=== PATIENT | female | born 1950 | race Caucasian/White ===

== ENCOUNTER 2017-08-19 16:19 | Emergency (ER) | payer OTHER, SELFPAY ==
[2017-08-19 16:29] VITALS: BP 123/61; PULSE 75; RESP 16; TEMP 97.7; O2SAT 99
--- NOTE | 2017-08-19 16:48 | ED PDOC ---
HPI: General Adult Time Seen by Provider: 08/19/17 16:38 Chief Complaint (Nursing): Flu-like Symptoms Chief Complaint (Provider): cough, body aches History Per: Patient Additional Complaint(s): 66-year-old female presents with cough for 2 weeks productive of yellow sputum. She also has tactile fever but has not measured temperature. She has mild back pain as well with no dysuria or hematuria. No associated nausea, vomiting, diarrhea or abdominal pain. Patient has mild chest pain but only when coughing excessively. She denies any recent travel. PMD: none Past Medical History Reviewed: Historical Data, Nursing Documentation, Vital Signs Vital Signs: Last Vital Signs Temp 97.7 F 08/19/17 16:26 Pulse 75 08/19/17 16:26 Resp 16 08/19/17 16:26 BP 123/61 08/19/17 16:26 Pulse Ox 99 08/19/17 17:18 - Medical History PMH: No Chronic Diseases - Surgical History Other surgeries: bladder suspension, hysterectomy - Family History Family History: States: No Known Family Hx - Living Arrangements Living Arrangements: With Family - Social History Current smoker - smoking cessation education provided: No Ex-Smoker (has not smoked in the last 12 months): Yes (quit 40 years ago) Alcohol: None Drugs: Denies - Home Medications Home Medications: Ambulatory Orders Medication Instructions Recorded Nitrofurantoin Macrocrystals 100 mg PO BID #20 cap 10/08/14 [Macrobid] Phenazopyridine HCl [Pyridium] 100 mg PO TID #6 tab 10/08/14 Albuterol HFA [Ventolin HFA 90 1 puff IH ASDIR #1 unit 08/19/17 mcg/actuation (8 g)] Azithromycin [Zithromax] 250 mg PO DAILY #6 tab 08/19/17 Benzonatate 200 mg PO TID PRN #20 capsule 08/19/17 - Allergies Allergies/Adverse Reactions: Allergies Allergy/AdvReac Type Severity Reaction Status Date / Time No Known Allergies Allergy Verified 10/08/14 19:06 Review of Systems ROS Statement: Except As Marked, All Systems Reviewed And Found Negative Constitutional: Positive for: Fever (tactile). Negative for: Chills, Weakness Cardiovascular: Positive for: Chest Pain (only when coughing) Respiratory: Positive for: Cough, Sputum (yellow). Negative for: Shortness of Breath Gastrointestinal: Negative for: Nausea, Vomiting, Abdominal Pain, Diarrhea Genitourinary Female: Negative for: Dysuria Musculoskeletal: Positive for: Back Pain Neurological: Negative for: Headache, Dizziness Physical Exam - Reviewed Nursing Documentation Reviewed: Yes Vital Signs Reviewed: Yes - Physical Exam Appears: Positive for: Well, Non-toxic, No Acute Distress Skin: Positive for: Normal Color. Negative for: Rash Eye Exam: Positive for: Normal appearance Cardiovascular/Chest: Positive for: Regular Rate, Rhythm Respiratory: Positive for: Normal Breath Sounds, Other (coughing noted during exam). Negative for: Wheezing, Respiratory Distress Gastrointestinal/Abdominal: Positive for: Soft. Negative for: Tenderness Back: Negative for: Vertebral Tenderness Extremity: Positive for: Normal ROM. Negative for: Pedal Edema Neurologic/Psych: Positive for: Alert, Oriented - Laboratory Results Urine dip results: Negative for: Leukocyte Esterase, Blood, Nitrate, Ketones, Glucose, Bilirubin, Protein - ECG Interpretation Of ECG: NSR 70 bpm, no acute finding, reviewed by PA and ED attending O2 Sat by Pulse Oximetry: 99 Pulse Ox Interpretation: Normal - Other Rad CXR X-Ray: Interpreted by Me, Viewed By Me X-Ray Interpretation: no acute infiltrate Medical Decision Making Medical Decision Makin66 year old with cough for 2 weeks Plan: CXR Urine dip Patient is aware of diagnostic testing results, all questions answered. Rx given for zithromax, tessalon perles and ventolin inhaler as well as motrin for pain. Patient was referred to clinic for follow up. Disposition - Clinical Impression Clinical Impression: Bronchitis - Patient ED Disposition Is Patient to be Admitted: No Counseled Patient/Family Regarding: Studies Performed, Diagnosis, Need For Followup, Rx Given - Disposition Referrals: [facility] [Outside] Disposition: Routine/Home Disposition Time: 17:54 Condition: STABLE Additional Instructions: Take rx meds as directed. Follow up with clinic in 2-3 days. Prescriptions: Albuterol HFA [Ventolin HFA 90 mcg/actuation (8 g)] 1 puff IH ASDIR #1 unit Azithromycin [Zithromax] 250 mg PO DAILY #6 tab Benzonatate 200 mg PO TID PRN #20 capsule PRN Reason: Cough Instructions: Acute Bronchitis Forms: [employer] ([place]i) Print Language: [email or web address]
== END 2017-08-19 18:09 | disposition home or self-care (01) ==
LOC: H.ER 16:19
DX: J40 Bronchitis, not specified as acute or chronic (principal); Z90.710 Acquired absence of both cervix and uterus